=== PATIENT | female | born 1945 | race Caucasian/White ===

== ENCOUNTER 2017-06-20 07:30 | Emergency (ER) | payer OTHER ==
--- NOTE | 2017-06-20 09:36 | RAD REPORT ---
EXAM DESCRIPTION: RAD - Hip Right 2 View - 06/20/2017 8:32 am CLINICAL HISTORY: History of fall, right-sided pain. COMPARISON: None. FINDINGS: Intramedullary tevin is present the right femur. The right hip appears intact. Cortical regu larity involving the right superior pubic ramus and inferior pubic ramus likely represents fracture.
[2017-06-20] MEDS ORDERED: HYDROCODONE/APAP 10/325 TAB ONE (09:49)
--- NOTE | 2017-06-20 10:21 | RAD REPORT ---
EXAM DESCRIPTION: CT - Pelvis Wo Cont - 06/20/2017 10:02 am CLINICAL HISTORY: Fall, pelvic and hip pain, abnormal plain film COMPARISON: Right hip same date TECHNIQUE: Axial 2 millimeter thick images of the pelvis were obtained with coronal and sagittal rec onstruction imaging. FINDINGS: Lower lumbar disc and facet degenerative changes are present. No fracture of the sacral al a. SI joint degenerative changes present. L5-S1 midline and right foraminal disc bulge. L4-5 prominen t protruding disc material is present. Ligamentous thickening is seen. Significant central spinal concha nosis is suspected. CT assessment is limited through this region. Enlarged lobulated uterus is present. No suspicious bowel finding. Left hemipelvis is intact. No fracture or dislocation of either proximal femur. Nondisplaced fractures of the right ischium are seen in 2 locations. There is a comminuted fracture o f the anterior column of the acetabulum. This extends superiorly into the roof of the acetabulum. No distraction or angulation deformity. The anterior column fracture extends posteriorly into the medial wall. There is a small hematoma along the inner table of the acetabulum. IMPRESSION: Comminuted anterior column fracture of the right acetabulum. There is posterior extensio n into the medial wall and superior extension into the roof of the acetabulum. Two adjacent nondisplaced fractures of the right ischium. No sacral ala fracture seen. Significant spinal stenosis is suspected at L4-5 with ligamentous thickening and bulging disc materia l. Central canal detail is inherently limited and this can be addressed during or subsequent to the p atient's pelvic fracture treatment.
--- NOTE | 2017-06-20 11:30 | EDPHYS ---
Physician Documentation [facility] Name: Francesca Reno Age: 72 yrs Sex: Female : 1945 Arrival Date: 06/20/2017 Time: 07:36 Bed 5 Private MD: ED Physician Chandan Gomez HPI: 06/20 08:05 This 72 yrs old Female presents to ER via EMS with complaints of Fall Injury. ps1 08:05 Patient fell when going down some steps and slipped. Has right hip pain. Pain rated as ps1 mild but worse with ambulation. Pain does not radiate. Did not hit head. No loss of consciousness. Out of town from [facility]. . Historical: - Allergies: 07:41 PENICILLINS; jl7 07:41 Levaquin; jl7 - Home Meds: 07:41 Furosemide Oral [Active]; Lantus Sub-Q [Active]; Levemir subcutaneous subcutaneous jl7 [Active]; Novolog Sub-Q [Active]; Simvastatin Oral [Active]; - PMHx: 07:41 Diabetes - IDDM; Cancer, Breast; Cancer; Colon; Hypertension; Hyperlipidemia; jl7 - PSHx: 07:41 right femur; jl7 - Immunization history:: Adult Immunizations up to date. - Social history:: Smoking status: Patient/guardian denies using tobacco. ROS: 08:05 Constitutional: Negative for fever, chills, and weight loss, Eyes: Negative for injury, ps1 pain, redness, and discharge, ENT: Negative for injury, pain, and discharge, Cardiovascular: Negative for chest pain, palpitations, and edema, Respiratory: Negative for shortness of breath, cough, wheezing, and pleuritic chest pain, Abdomen/GI: Negative for abdominal pain, nausea, vomiting, diarrhea, and constipation, Back: Negative for injury and pain, : Negative for injury, bleeding, discharge, and swelling. 08:05 Skin: Negative for injury, rash, and discoloration, Neuro: Negative for headache, weakness, numbness, tingling, and seizure, Psych: Negative for depression, anxiety, suicide ideation, homicidal ideation, and hallucinations. 08:05 MS/extremity: Positive for tenderness, of the right hip. Exam: 08:05 Constitutional: This is a well developed, well nourished patient who is awake, alert, ps1 and in no acute distress. Head/Face: Normocephalic, atraumatic. Eyes: Pupils equal round and reactive to light, extra-ocular motions intact. Lids and lashes normal. Conjunctiva and sclera are non-icteric and not injected. ENT: Nares patent. No nasal discharge, no septal abnormalities noted. Tympanic membranes are normal and external auditory canals are clear. Oropharynx with no redness, swelling, or masses, exudates, or evidence of obstruction, uvula midline. Mucous membranes moist. Chest/axilla: Normal chest wall appearance and motion. Nontender with no deformity. No lesions are appreciated. Cardiovascular: Regular rate and rhythm. No gallops, murmurs, or rubs. Normal PMI, no JVD. No pulse deficits. Respiratory: Lungs have equal breath sounds bilaterally, clear to auscultation and percussion. No rales, rhonchi or wheezes noted. No increased work of breathing, no retractions or nasal flaring. Abdomen/GI: Soft, non-tender, with normal bowel sounds. No distension or tympany. No guarding or rebound. No evidence of tenderness throughout. Back: No spinal tenderness. No costovertebral tenderness. Full range of motion. Skin: Warm, dry with normal turgor. Normal color with no rashes, no lesions, and no evidence of cellulitis. 08:05 Musculoskeletal/extremity: Extremities: grossly normal except: noted in the right hip: decreased ROM, pain. Vital Signs: 07:41 BP 149 / 63; Pulse 69; Resp 16 S; Temp 97.8(O); Pulse Ox 100% on R/A; Weight 88 kg (R); jl7 Height 5 ft. 9 in. (175.26 cm) (R); Pain 2/10; 08:30 BP 167 / 66; Pulse 75; Resp 16 S; Pulse Ox 99% on R/A; jl7 09:30 BP 158 / 74; Pulse 75; Resp 18 S; Pulse Ox 99% on R/A; jl7 10:55 BP 173 / 69; Pulse 81; Resp 18; Pulse Ox 99% ; jb1 07:41 Body Mass Index 28.65 (88.00 kg, 175.26 cm) jl7 MDM: 08:36 Patient medically screened. ps1 06/20 11:31 Order name: Urine Dipstick--Ancillary (enter results); Complete Time: 12:58 mw2 06/20 07:47 Order name: Hip Right 2 View XRAY; Complete Time: 09:37 ps1 06/20 09:40 Order name: CT Pelvis wo Cont; Complete Time: 10:28 ps1 06/20 10:34 Order name: Kennedy; Complete Time: 11:06 ae1 Administered Medications: 10:30 Drug: [place] 10 mg-325 mg 1 tabs Route: PO; jl7 11:00 Follow up: Response: No adverse reaction; Pain is decreased jl7 13:04 Drug: [place] 5 mg-325 mg 1 tabs Route: PO; iw Disposition: 06/20/17 11:29 Transfer ordered to [facility]. Diagnosis is acetabular/pelvic fracture. - Reason for transfer: Higher level of care. - Accepting physician is Eliud. - Condition is Stable. - Problem is new. - Symptoms are unchanged. Signatures: Dispatcher [employer] Jazz Hankins RN RN iw Arik Silveira RN RN ae1 Beny Middleton RN RN jl7 Chandan Gomez MD MD ps1
--- NOTE | 2017-06-20 11:30 | ER ---
Nurse's Notes [facility] Name: Francesca Reno Age: 72 yrs Sex: Female : 1945 Arrival Date: 06/20/2017 Time: 07:36 Bed 5 Private MD: Diagnosis: acetabular/pelvic fracture Presentation: 06/20 07:37 Presenting complaint: EMS states: She fell down 3 steps, denies LOC, does not take jl7 blood thinners. Pt c/o right hip/leg pain. Transition of care: patient was not received from another setting of care. Onset of symptoms was June 20, 2017. Care prior to arrival: None. 07:37 Method Of Arrival: EMS: [facility] jl7 07:37 Acuity: SHAYAN 3 jl7 Triage Assessment: 07:41 General: Appears in no apparent distress. Behavior is calm, cooperative, appropriate jl7 for age. Pain: Complains of pain in right hip Pain radiates to right femur Pain currently is 2 out of 10 on a pain scale. at worst was 10 out of 10 on a pain scale. Is intermittent, Aggravated by increased activity, repositioning, weight bearing. EENT: No signs and/or symptoms were reported regarding the EENT system. Neuro: Level of Consciousness is awake, alert, obeys commands, Oriented to person, place, time, situation. Cardiovascular: Patient's skin is warm and dry. Respiratory: Airway is patent Respiratory effort is even, unlabored, Respiratory pattern is regular, symmetrical. GI: No signs and/or symptoms were reported involving the gastrointestinal system. : No signs and/or symptoms were reported regarding the genitourinary system. Derm: Skin is pink, warm \T\ dry. Musculoskeletal: Reports pain in right hip. Historical: - Allergies: 07:41 PENICILLINS; jl7 07:41 Levaquin; jl7 - Home Meds: 07:41 Furosemide Oral [Active]; Lantus Sub-Q [Active]; Levemir subcutaneous subcutaneous jl7 [Active]; Novolog Sub-Q [Active]; Simvastatin Oral [Active]; - PMHx: 07:41 Diabetes - IDDM; Cancer, Breast; Cancer; Colon; Hypertension; Hyperlipidemia; jl7 - PSHx: 07:41 right femur; jl7 - Immunization history:: Adult Immunizations up to date. - Social history:: Smoking status: Patient/guardian denies using tobacco. Screenin:08 Abuse screen: Denies threats or abuse. Denies injuries from another. Nutritional jl7 screening: No deficits noted. Tuberculosis screening: No symptoms or risk factors identified. Fall Risk None identified. Assessment: 07:45 General: see triage assessment. jl7 09:00 Reassessment: No changes from previously documented assessment. Patient and/or family jl7 updated on plan of care and expected duration. Pain level reassessed. Patient is alert, oriented x 3, equal unlabored respirations, skin warm/dry/pink. 10:34 Reassessment: Verbal order with 100% read back, per Marcia Wade ordered. ae1 Vital Signs: 07:41 BP 149 / 63; Pulse 69; Resp 16 S; Temp 97.8(O); Pulse Ox 100% on R/A; Weight 88 kg (R); jl7 Height 5 ft. 9 in. (175.26 cm) (R); Pain 2/10; 08:30 BP 167 / 66; Pulse 75; Resp 16 S; Pulse Ox 99% on R/A; jl7 09:30 BP 158 / 74; Pulse 75; Resp 18 S; Pulse Ox 99% on R/A; jl7 10:55 BP 173 / 69; Pulse 81; Resp 18; Pulse Ox 99% ; jb1 07:41 Body Mass Index 28.65 (88.00 kg, 175.26 cm) jl7 ED Course: 07:36 Patient arrived in ED. jl7 07:38 Triage completed. jl7 07:41 Arm band placed on right wrist. jl7 07:42 Chandan Gomez MD is Attending Physician. ps1 08:29 X-ray completed. Portable x-ray completed in exam room. Patient tolerated procedure ag1 poorly. 08:31 Hip Right 2 View XRAY In Process Unspecified. EDMS 09:04 Beny Middleton, REY is Primary Nurse. jl7 09:08 Patient has correct armband on for positive identification. Placed in gown. Bed in low jl7 position. Call light in reach. Side rails up X 1. Pulse ox on. NIBP on. Warm blanket given. 10:00 CT completed. Patient tolerated procedure well. Patient moved to CT via stretcher. sj Patient moved back from CT. 10:02 CT Pelvis wo Cont In Process Unspecified. EDMS 11:06 Kennedy cath inserted, using sterile technique, 16 Fr., by mi, balloon inflated, to jl7 gravity drainage, urine specimen collected. returned clear yellow urine. Patient tolerated well. 13:07 No provider procedures requiring assistance completed. Patient did not have IV access iw during this emergency room visit. Administered Medications: 10:30 Drug: [place] 10 mg-325 mg 1 tabs Route: PO; jl7 11:00 Follow up: Response: No adverse reaction; Pain is decreased jl7 13:04 Drug: [place] 5 mg-325 mg 1 tabs Route: PO; iw Outcome: 11:29 ER care complete, transfer ordered by MD. ps1 13:06 Transferred by ground EMS Transfer form completed. X-rays sent w/ patient. iw 13:06 Condition: good 13:06 Discharge instructions given to patient, family, Instructed on the need for transfer, Demonstrated understanding of instructions. 13:07 Patient left the ED. iw Signatures: Dispatcher [employer] EDMS Jose Mcbride jb1 Stephanie Wood Irene, REY RN iw Vivian Heck ag1 Arik Silveira RN RN ae1 Beny Middleton RN RN jl7 Chandan Gomez MD MD ps1 Corrections: (The following items were deleted from the chart) 11:31 07:37 Presenting complaint: EMS states: She fell down 3 steps, denies LOC, alarcon snot jl7 take blood thinners. Pt c/o right hip/leg pain. jl7
[2017-06-20 11:33] LABS: Urine Blood NEGATIVE (NEG); Urine Glucose NEGATIVE (NEG); Urine Protein NEGATIVE (NEG); Urine pH 5.5 (5.0-7.0)
[2017-06-20] MEDS ORDERED: HYDROCODONE/APAP 5/325 MG TAB ONE (13:02)
== END 2017-06-20 13:07 | disposition short-term general hospital (02) ==
LOC: ER 07:30
DX: S32.401A Unspecified fracture of right acetabulum, initial encounter for closed fracture (principal); W10.8XXA Fall (on) (from) other stairs and steps, initial encounter; Y93.9 Activity, unspecified; Y92.9 Unspecified place or not applicable; Z79.4 Long term (current) use of insulin; Z88.1 Allergy status to other antibiotic agents; Z88.0 Allergy status to penicillin; Z85.3 Personal history of malignant neoplasm of breast; I10 Essential (primary) hypertension; E11.9 Type 2 diabetes mellitus without complications
CPT/HCPCS: 51702; 72192; 81003; 99285